=== PATIENT | female | born 1955 | race Hispanic/Latino ===

== ENCOUNTER 2024-08-25 11:34 | Day surgery (SDC) | payer OTHER, MEDICAID ==
[2024-08-23 13:31] LABS: BASOPHILS # (AUTO) 0.08 K/uL (0.00-0.20); BASOPHILS % (AUTO) 1.2 % (0.0-5.0); EOSINOPHILS # (AUTO) 0.19 K/uL (0.00-0.70); EOSINOPHILS % (AUTO) 2.8 % (0.0-8.0); HEMATOCRIT 42.3 % (36-48); IMMATURE GRANULOCYTE ABSOLUTE 0.01 K/uL (0-1); LYMPHOCYTES # (AUTO) 2.7 K/uL (1.0-4.8); LYMPHOCYTES % (AUTO) 39.8 % (21.0-51.0); MEAN CORPUSCULAR HEMOGLOBIN 29.2 pg (27.0-33.0); MEAN CORPUSCULAR VOLUME 85.8 fL (79-99); MONOCYTES # (AUTO) 0.6 K/uL (0.1-1.0); MONOCYTES % (AUTO) 8.7 % (3.0-13.0); NEUTROPHILS # (AUTO) 3.2 K/uL (1.8-7.7); NEUTROPHILS % (AUTO) 47.4 % (40.0-77.0); PLATELET COUNT (AUTO) 284 K/uL (130-400); RED BLOOD CELL COUNT(AUTO) 4.93 MIL/uL (4.00-5.50); RED CELL DISTRIBUTION WIDTH 13.2 % (11.0-15.5); WHITE BLOOD COUNT (AUTO) 6.8 K/uL (4.8-10.8)
[2024-08-23 13:42] LABS: INR 0.97 (0.85-1.15); PROTHROMBIN TIME 10.3 SEC (9.6-11.6)
[2024-08-23 13:44] LABS: PARTIAL THROMBOPLASTIN TIME 29.9 SEC (26.3-35.5)
[2024-08-23 13:50] LABS: CREATININE 0.6 mg/dL (0.5-1.0); POTASSIUM 4.3 mmol/L (3.5-5.1)
[2024-08-23 14:22] VITALS: BP 169/78; PULSE 89; RESP 17; TEMP 97.6
--- NOTE | 2024-08-24 06:49 | EKG ---
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
--- NOTE | 2024-08-24 12:08 | NUR ---
REPORT REPORTED BMP TO DR HERRERA. RECEIVED ORDERS TO REPEAT BMP AM IN AM
[2024-08-25] VITALS (9 sets, daily range): BP systolic 98–210; BP diastolic 46–92; PULSE 35–40; RESP 16–18; TEMP 97–207.1
[~2024-08-25] VITALS: Ht 154.9 cm; Wt 65.3 kg
[~2024-08-25 11:34] MED LIST: CHLO25TA3 PO; LISI40TA15 PO
[2024-08-25 13:00] LABS: CREATININE 0.5 mg/dL (0.5-1.0); POTASSIUM 3.2 mmol/L (3.5-5.1)
[2024-08-25] MEDS: 0.9%NACL 1000ML 1,000 ML IV SCH (14:27)
[2024-08-25] MEDS ORDERED: SODIUM BICARB 50MEQ 50ML VIAL 50 ML ONE (15:23)
[2024-08-25] MEDS ORDERED: LIDOCAINE HCL 400MG/20ML VIAL ONE (15:24)
[2024-08-25] MEDS ORDERED: HEParin-NS 1,000 UNIT/500 ML 500 ML IV ONE (15:24)
[2024-08-25] MEDS ORDERED: FENTanyl CITRate PF 50 MCG/1 ML 2ML VIAL ONE (15:24)
[2024-08-25] MEDS ORDERED: MIDAZOLAM HCL 1 MG/ML 2ML VIAL ONE (15:25)
[2024-08-25] MEDS ORDERED: ISOPROTERENOL HCL 0.2 MG/ML AMP/VIAL/BAG ONE (15:40)
[2024-08-25] MEDS ORDERED: ADENOSINE 6MG VIAL IV ONE (15:40)
--- NOTE | 2024-08-25 19:21 | PN ---
The patient came in electively for electrophysiologic study to evaluate her conduction system. She had presented with bradycardia and 2:1 AV block, with some junctional escape beats.. She was completely asymptomatic. Heart rates were generally in the 30s to 40s. She also had a left bundle branch block. Although I suspected her block was within the AV node, the presence of a left bundle trevor block was an indication of significant conduction system disease, therefore I recommended electrophysiologic study. I did explain to the patient and her daughter at the time that if the level of block were below the AV node then LV recommending a permanent pacemaker and offered that procedure at the same time, however the patient declined and just wanted to have this study done. She did seem somewhat untrusting. The patient presented to the EP lab in 2:1 AV block. As is soon as the electrophysiology catheters were placed, it was clear that the level of block was below the his bundle. I discussed this with the patient as she was coming out of the room however I then discussed it with the patient's daughter (different from the daughter I had met in the office), I explained the physiology, lennie pictures, and discussed the prognosis with progression to complete heart block, etc. She requested that I speak with her brother who was the older sibling. I discussed it at length again with the patient who was now awake, the daughter and the son. I brought her tracings and showed them the His bundle recordings. They asked many appropriate questions which I answered. Basically, I told them that the time to progression of complete AV block is completely unpredictable. I explained that she may begin to feel fatigued, short of breath, or lightheaded or she may simply have a syncopal episode. I explained that this could occur while driving and either she, the occupants of her vehicle, occupants of another vehicle, or pedestrian crossing the street could be injured or killed were this to occur. In the end, the patient chose to be discharged and stated that she would speak to her family further. She declined a follow up appointment. I did give the family a copy of the intracardiac tracings and wrote 3 that he could look up, AV block, infranodal block, and Mobitz type 2 second-degree AV block, the latter which an E kg pattern that she does not exhibit however the physiology is the same. I also advised her not to drive. Vitals/Labs Vital Signs Date Time Temp Pulse Resp B/P (MAP) Pulse Ox O2 Delivery O2 Flow Rate FiO2 08/25/24 18:29 37 18 137/52 95 Room Air 08/25/24 17:00 97.5 Laboratory Tests 08/25/24 12:40 PARKER HERRERA MD Aug 25, 2024 19:21
== END 2024-08-25 19:24 | disposition home or self-care (01) ==
LOC: DAH 11:34
PROVIDERS: ATTEND Internal Medicine Cardiovascular Disease
DX: R00.1 Bradycardia, unspecified (principal); I44.1 Atrioventricular block, second degree; I44.7 Left bundle-branch block, unspecified; I10 Essential (primary) hypertension; Z79.899 Other long term (current) drug therapy; Z90.49 Acquired absence of other specified parts of digestive tract; Z90.710 Acquired absence of both cervix and uterus; Z88.0 Allergy status to penicillin; Z79.01 Long term (current) use of anticoagulants
CPT/HCPCS: 80048 ×2; 85025; 85610; 85730; 36415 ×2; 93005; 93619; 99156; 99157; C1894 ×3; C1730 ×2; C1760 ×2; J3010; J3490 ×2; J2250; J1644; A4215; A4222; A4221; A4663; A4216; A4606; A4223 ×3; J0153